=== PATIENT | female | born 1990 | race Caucasian/White ===

== ENCOUNTER 2016-10-11 08:11 | Inpatient (IN) | payer BC ==
[~2016-10-11] VITALS: Ht 162.6 cm; Wt 93.6 kg
[2016-10-11] MEDS: D5%-LACTATED RINGERS 1,000 ML IV SCH ×2 (13:10→21:10)
[2016-10-11] MEDS ORDERED: OXYTOCIN 30U/ 0.9% NaCL 500ML 500 ML IV ONE (13:10)
[2016-10-11] MEDS: PLEASE ENTER ALLERGIES MC SCH ×4 (13:30→21:30)
[2016-10-11] MEDS ORDERED: PLEASE ENTER HEIGHT AND WEIGHT MC SCH (13:30)
[2016-10-11] MEDS: PLEASE ENTER HEIGHT AND WEIGHT MC SCH ×2 (13:30→21:30)
[2016-10-11] MEDS ORDERED: ONDANSETRON 2MG/ML, 2ML IVPush PRN (13:30)
[2016-10-11] MEDS ORDERED: FENTANYL PF 100 MCG/2ML IV PRN (13:30)
[2016-10-11] MEDS ORDERED: PLEASE ENTER ALLERGIES MC SCH ×2 (13:30)
[2016-10-11] MEDS ORDERED: FENTANYL PF 100 MCG/2ML IVPush PRN (13:30)
[2016-10-11] MEDS: LACTATED RINGERS 1,000 ML IV SCH ×2 (13:36→16:34)
[2016-10-11 13:49] VITALS: BP 105/59
[2016-10-11] MEDS ORDERED: PREN1TAB60 PO (15:28)
[2016-10-11] MEDS ORDERED: ALBU18HF IH (15:33)
[2016-10-11] MEDS ORDERED: BUDE180A INH (15:33)
[2016-10-11] MEDS ORDERED: MONT10TA6 PO (15:48)
[2016-10-11] MEDS ORDERED: OXYTOCIN 30U/ 0.9% NaCL 500ML 500 ML IV PRN (18:07)
[2016-10-11] MEDS ORDERED: OXYTOCIN 30U/ 0.9% NaCL 500ML 500 ML ONE (18:10)
[2016-10-12] MEDS: LACTATED RINGERS 1,000 ML IV SCH ×6 (00:01→21:10)
[2016-10-12] MEDS ORDERED: FENTANYL PF 100 MCG/2ML ONE (00:33)
[2016-10-12] MEDS ORDERED: BUPIVACAINE/PF 0.25% ONE (01:19)
[2016-10-12] MEDS ORDERED: FENTANYL/BUPIV./NS/PF 250 ML EPIDCONT ONE (01:19)
[2016-10-12] MEDS ORDERED: MISOPROSTOL 200 MCG TABLET ONE (01:44)
[2016-10-12] MEDS ORDERED: LIDOCAINE 1%, 20ML ONE (01:44)
[2016-10-12] MEDS ORDERED: OXYTOCIN 30U/ 0.9% NaCL 500ML 500 ML ONE (01:44)
[2016-10-12] MEDS ORDERED: FENTANYL/BUPIV./NS/PF 250 ML EPIDCONT SCH (01:52)
[2016-10-12] MEDS ORDERED: LACTATED RINGERS 1,000 ML IVBOLUS PRN (02:00)
[2016-10-12] MEDS ORDERED: NALOXONE 0.4 MG/ML, 1ML IVPush PRN (02:00)
[2016-10-12] MEDS ORDERED: EPHEDRINE 50 MG/ML, 1ML IVPush PRN (02:00)
[2016-10-12] MEDS ORDERED: NEWBORN KIT ONE (03:03)
[2016-10-12] MEDS: OXYTOCIN 30U/ 0.9% NaCL 500ML 500 ML IV SCH ×3 (03:16→23:16)
[2016-10-12] MEDS ORDERED: BISACODYL 10 MG SUPP PR PRN (03:30)
[2016-10-12] MEDS ORDERED: METHYLERGONOVINE 0.2 MG/ML IM PRN (03:30)
[2016-10-12] MEDS ORDERED: OXYTOCIN 10 UNITS/ML, 1ML IM PRN (03:30)
[2016-10-12] MEDS ORDERED: OXYcodone/APAP 5/325MG TABLET PO PRN ×2 (03:30)
[2016-10-12] MEDS ORDERED: IBUPROFEN 800 MG TABLET PO PRN (03:30)
[2016-10-12] MEDS ORDERED: CALCIUM CARBONATE 500 MG TAB.CHEW PO PRN (03:30)
[2016-10-12] MEDS ORDERED: GLYCERIN ADULT SUPP PR PRN (03:30)
[2016-10-12] MEDS ORDERED: ONDANSETRON 2MG/ML, 2ML IV PRN (03:30)
[2016-10-12] MEDS ORDERED: ACETAMINOPHEN 325 MG TABLET PO PRN ×3 (03:30)
[2016-10-12] MEDS ORDERED: MISOPROSTOL 200 MCG TABLET PR PRN (03:30)
[2016-10-12] MEDS: D5%-LACTATED RINGERS 1,000 ML IV SCH ×3 (05:10→21:10)
[2016-10-12] MEDS: PLEASE ENTER HEIGHT AND WEIGHT MC SCH ×3 (05:30→21:30)
[2016-10-12] MEDS: PLEASE ENTER ALLERGIES MC SCH ×6 (05:30→21:30)
[2016-10-12 05:50] VITALS: BP 119/66
[2016-10-12 07:55] VITALS: BP 116/69
[2016-10-12] MEDS: PRENATAL VIT/IRON/FA 1 EACH TABLET PO SCH (10:25)
[2016-10-12] MEDS: DOCUSATE 100 MG CAPSULE PO PRN (10:25)
[2016-10-12 15:00] VITALS: BP 116/70
[2016-10-12 21:10] VITALS: BP 126/82
[2016-10-13 01:10] VITALS: BP 128/82
[2016-10-13] MEDS: LACTATED RINGERS 1,000 ML IV SCH (01:52)
[2016-10-13 04:30] VITALS: BP 135/82
[2016-10-13 06:40] VITALS: BP 106/64
[2016-10-13] MEDS: PRENATAL VIT/IRON/FA 1 EACH TABLET PO SCH (08:04)
[2016-10-13] MEDS: DOCUSATE 100 MG CAPSULE PO PRN (08:04)
[2016-10-13] MEDS: OXYTOCIN 30U/ 0.9% NaCL 500ML 500 ML IV SCH (09:16)
[2016-10-13] MEDS ORDERED: OXYC-302 PO (11:05)
[2016-10-13] MEDS ORDERED: IBUP800T PO (11:05)
== END 2016-10-13 13:00 | disposition home or self-care (01) | DRG 775 ==
LOC: LDIP 12:15 → 2NW 10-12 05:33
PROVIDERS: ADMIT Obstetrics & Gynecology; ATTEND Obstetrics & Gynecology
PROC: 10E0XZZ Delivery of Products of Conception, External Approach (ICD-10-PCS; principal; 2016-10-12)
PROC: 0KQM0ZZ Repair Perineum Muscle, Open Approach (ICD-10-PCS; 2016-10-12)
PROC: 10907ZC Drainage of Amniotic Fluid, Therapeutic from Products of Conception, Via Natural or Artificial Opening (ICD-10-PCS; 2016-10-12)
PROC: 3E0R3CZ (ICD-10-PCS; 2016-10-12)
PROC: 00HU33Z Insertion of Infusion Device into Spinal Canal, Percutaneous Approach (ICD-10-PCS; 2016-10-12)
DX: O48.0 Post-term pregnancy (principal); O99.52 Diseases of the respiratory system complicating childbirth; J45.909 Unspecified asthma, uncomplicated; O70.1 Second degree perineal laceration during delivery; Z37.0 Single live birth; Z3A.41 41 weeks gestation of pregnancy
CPT/HCPCS: 36415; 85025; 86850; 86900; J3010; J2590; J7120